=== PATIENT | female | born 1980 | race Caucasian/White ===

== ENCOUNTER 2022-02-07 22:01 | Emergency (ER) | payer OTHER ==
--- OUTSIDE RECORDS SUMMARY | 2022-02-07 22:03 | XMS REPORT | Continuity of Care Document ---
:1980 Author Organization [facility] t Address [address] [place] [address] Care Team Providers Name Role Phone ARNOLDO Attending Clinician Unavailable LUCILA Attending Clinician Unavailable MD MANPREET GAYTAN Attending Clinician Unavailable LUCILA Admitting Clinician Unavailable MD MANPREET GAYTAN Admitting Clinician Unavailable Problems This patient has no known problems. Allergies, Adverse Reactions, Alerts This patient has no known allergies or adverse reactions. Medications This patient has no known medications. Procedures This patient has no known procedures. Encounters Start End Encounter Admission Attending Care Care Encounter Source Date/Time Date/Time Type Type Clinicians Facility Department ID 2020-06-30 2020-06-30 Outpatient ARNOLDO [facility] [id number] [place] 00:00:00 00:00:00 DENISSE [address] 2020-05-21 2020-05-22 Outpatient MARIA GUADALUPE GAYTAN [facility] [id number] [place] 00:00:00 00:00:[address] 2020-05-17 2020-05-17 Outpatient MARIA GUADALUPE GAYTAN [facility] [id number] [place] 00:00:00 00:00:[address] 2020-01-13 2020-01-13 Outpatient MARIA GUADALUPE GAYTAN [facility] [id number] [place] 00:00:00 00:00:[address] 2020-01-13 2020-01-13 Outpatient MARIA GUADALUPE GAYTAN [facility] [id number] [place] 00:00:00 00:00:[address] 2020-01-13 2020-01-13 Outpatient MARIA GUADALUPE GAYTAN [facility] [id number] [place] 00:00:00 00:00:[address] Results Test Description Test Time Test Comments Results Result Comments Source SARS coronavirus 2 RNA [Presence] in Respiratory speci men by 2020-05-18 03:01:37 FADUMO with probe detection Test Item Value Reference Range Interpretation Comme nts SARS coronavirus 2 RNA [Presence] in Respiratory Not detected Not-D etected specimen by FADUMO with probe detection (test code = 91944-9)
[2022-02-07] MEDS ORDERED: LACTULOSE 20 GM/30 ML UCUP ONE (22:51)
[2022-02-07] MEDS ORDERED: BISACODYL 10 MG RECTAL SUPP ONE (22:51)
[2022-02-07] MEDS ORDERED: NA CHLORIDE 0.9% 1,000 ML ONE (22:52)
[2022-02-07 23:02] LABS: Hematocrit 41.6 % (36.0-45.0); RBC Red Blood Cell Count 5.32 M/uL (3.86-4.86)
[2022-02-07 23:03] LABS: Absolute Lymphocytes (CBC) 1.7 K/uL (0.7-4.9); Lymphocytes % 11.5 % (15.3-44.8); MPV 7.3 fL (7.6-11.3)
[2022-02-07 23:11] LABS: ALT/SGPT 34 U/L (12-78); AST/SGOT 17 U/L (15-37); Albumin 4.3 g/dL (3.4-5.0); Alkaline Phosphatase 143 U/L (45-117); BUN Blood Urea Nitrogen 15 mg/dL (7-18); Bicarbonate 26 mmol/L (21-32); Bilirubin Total 0.6 mg/dL (0.2-1.0); Glucose Level 168 mg/dL (74-106); Lipase 106 U/L (73-393); Potassium 3.4 mmol/L (3.5-5.1); Sodium Level 140 mmol/L (136-145)
[2022-02-07] MEDS ORDERED: ONDANSETRON 4 MG/2 ML VIAL ONE (23:35)
[2022-02-08] MEDS ORDERED: NA CHLORIDE 0.9% 1,000 ML ONE (00:57)
--- NOTE | 2022-02-08 01:15 | ER ---
Nurse's Notes [facility] Name: Gabe Nicole Age: 41 yrs Sex: Female : 1980 Arrival Date: 02/07/2022 Time: 22:03 Bed 3 Private MD: Diagnosis: Congenital hiatus hernia;Epigastric pain-gastric outlet obstruction;Elevated white blood cell count;Volvulus-gastric;Hypokalemia Presentation: 02/07 22:43 Chief complaint: Patient states: unable to tolerate liquids/food, abdominal pain, and al4 constipation since yesterday. Coronavirus screen: Vaccine status: Patient reports receiving the 2nd dose of the covid vaccine. moderna. Ebola Screen: No symptoms or risks identified at this time. Initial Sepsis Screen:. Risk Assessment: Do you want to hurt yourself or someone else? Patient reports no desire to harm self or others. Onset of symptoms was February 06, 2022. 22:43 Method Of Arrival: EMS al4 22:43 Acuity: JACKSON 3 al4 02/08 00:13 Initial Sepsis Screen: Does the patient meet any 2 criteria? No. Patient's initial al4 sepsis screen is negative. Does the patient have a suspected source of infection? No. Patient's initial sepsis screen is negative. Triage Assessment: 02/07 22:52 General: Appears in no apparent distress. uncomfortable, Behavior is calm, cooperative. al4 Pain: Complains of pain in abdomen Also complains of constipation, nausea. Neuro: Level of Consciousness is awake, alert, obeys commands, Oriented to person, place, time, situation. Cardiovascular: Capillary refill < 3 seconds Patient's skin is warm and dry. Respiratory: Airway is patent Respiratory effort is unlabored, Respiratory pattern is regular. GI: Abdomen is distended, Bowel sounds present X 4 quads. Abdomen is tender to palpation Reports constipation, nausea, vomiting. Musculoskeletal: Circulation, motion, and sensation intact. 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 al4 Historical: - Allergies: 22:52 Bactrim; al4 - Home Meds: 02/08 00:17 levothyroxine 200 mcg oral cap [Active]; Omeprazole Oral [Active]; Linzess 72 mcg oral al4 cap 1 cap once daily [Active]; omeprazole oral [Active]; Acidophilus Oral [Active]; Vitamin C 1,000 mg Oral tab [Active]; Vitamin D3 oral [Active]; Xyzal 5 mg oral tab [Active]; 00:21 carvedilol 12.5 mg oral tab 2 times per day [Active]; rosuvastatin 10 mg oral tab al4 [Active]; montelukast 10 mg oral tab [Active]; zinc 50 mg oral cap [Active]; - PMHx: 02/07 22:52 Depression; Hyperlipidemia; Hypothyroidism; al4 - Immunization history:: Adult Immunizations up to date, Client reports receiving the 2nd dose of the Covid vaccine. - Social history:: Smoking status: Patient denies any tobacco usage or history of. - Family history:: not pertinent. Screenin/30 00:11 Abuse screen: Denies threats or abuse. Nutritional screening: No deficits noted. al4 Tuberculosis screening: No symptoms or risk factors identified. Fall Risk No fall in past 12 months (0 pts). IV access (20 points). Ambulatory Aid- None/Bed Rest/Nurse Assist (0 pts). Gait- Normal/Bed Rest/Wheelchair (0 pts) Mental Status- Oriented to own ability (0 pts). Total Hayes Fall Scale indicates No Risk (0-24 pts). Assessment: 00:00 Reassessment: Patient and/or family updated on plan of care and expected duration. Pain al4 level reassessed. Patient is alert, oriented x 3, equal unlabored respirations, skin warm/dry/pink. 00:10 Reassessment: bsc given to patient. patient aware of the need for a urine sample but al4 states she does not need to go at this time. 00:57 Reassessment: Patient is alert, oriented x 3, equal unlabored respirations, skin al4 warm/dry/pink. 01:15 Reassessment: new IV needed before zosyn administration. RN attempting IV start. al4 02:04 Reassessment: pt uncomfortable notified EDP new orders received pt medicated see JAN. bb 03:00 Reassessment: Patient and/or family updated on plan of care and expected duration. Pain al4 level reassessed. patient is sitting up in bed. alert and oriented. . 04:00 Reassessment: Patient and/or family updated on plan of care and expected duration. Pain al4 level reassessed. Patient is alert, oriented x 3, equal unlabored respirations, skin warm/dry/pink. 04:31 Reassessment: Report called to [facility] Mely Waggoner RN. al4 05:40 Reassessment: Report given to [facility]. at bedside and aware of al4 transfer. 05:41 Reassessment: Patient is alert, oriented x 3, equal unlabored respirations, skin al4 warm/dry/pink. Vital Signs: 02/07 22:30 BP 136 / 109; Pulse 116; Resp 18; Temp 99.5; Pulse Ox 100% ; Weight 108.86 kg; al4 23:45 BP 146 / 88; Pulse 92; Resp 20 S; Pulse Ox 98% on R/A; al4 02/08 01:01 BP 145 / 85; Pulse 104; Resp 22; Pulse Ox 100% on R/A; al4 02:04 BP 147 / 96; Pulse 104; Resp 16 S; Pulse Ox 97% on R/A; bb 02:30 BP 149 / 82; Pulse 92; al4 04:30 BP 152 / 95; Pulse 103; Resp 20 S; Pulse Ox 97% on R/A; al4 ED Course: 02/07 22:03 Patient arrived in ED. mw2 22:03 Robert Sanchez MD is Attending Physician. [facility] 22:52 Triage completed. al4 22:53 Arm band placed on. al4 23:00 Priti Villatoro RN is Primary Nurse. bb 02/08 00:11 Patient has correct armband on for positive identification. Placed in gown. al4 00:45 CT Abd/Pelvis - PO and IV Contrast In Process Unspecified. EDMS 01:03 US Abdomen Limited In Process Unspecified. EDMS 01:16 initiated a transfer with Peg from [facility] [place]. [facility] declined mw2 due to capacity. 01:21 initiated a transfer with Phylicia from [facility] [place]. mw2 01:50 Inserted saline lock: 20 gauge in left antecubital area, using aseptic technique. bb 02:05 Patient transferred, IV remains in place. bb 02:06 Peg from [facility] called "it is still going to be a decline due to ER saturation mw2 until we can get out of it. I will keep watching it and will call you back.". 03:04 initiated a transfer with Paulette Rodriguez from [facility]. mw2 03:06 [facility] denied due to capacity. mw2 03:33 initiated a transfer with Ruby Simms from [facility] [place]. mw2 03:[address] Sanchez with Dr. Kennedy from [facility]. mw2 03:51 administrative approval given by Ruby Simms/ patient has been accepted to [address] to the ER/ Dr. Kennedy accepted the patient in transfer/report to be called to [phone]. 04:46 No provider procedures requiring assistance completed. Patient transferred, IV remains al4 in place. Administered Medications: 02/07 23:00 Drug: Lactulose 30 grams Volume: 45 ml; Route: PO; bb 02/08 00:51 Follow up: Response: No adverse reaction al4 02/07 23:00 Drug: Dulcolax (bisacodyl) Suppository 10 mg Route: NV; 02/08 00:51 Follow up: Response: No adverse reaction al4 02/07 23:01 Drug: NS 0.9% 1000 ml Route: IV; Rate: 1 bolus; Site: right antecubital; bb 02/08 04:40 Follow up: Response: No adverse reaction; IV Status: Completed infusion; IV Intake: al4 1000ml 02/07 23:43 Drug: Zofran (Ondansetron) 4 mg Route: IVP; Site: right antecubital; bb 02/08 00:51 Follow up: Response: No adverse reaction al4 00:57 Drug: NS 0.9% 1000 ml Route: IV; Rate: 1 bolus; Site: right antecubital; al4 04:39 Follow up: IV Status: Completed infusion; IV Intake: 1000ml al4 01:50 Drug: Zosyn (piperacillin-tazobactam) 3.375 grams {Note: started by LINDSEY Marcos.} Route: al4 IVPB; Infused Over: 60 mins; Site: left antecubital; 04:39 Follow up: Response: No adverse reaction; IV Status: Completed infusion; IV Intake: al4 100ml 02:03 Drug: morphine 4 mg Route: IVP; Site: left antecubital; bb 03:00 Follow up: Response: No adverse reaction; RASS: Alert and Calm (0) al4 03:29 Drug: NS 0.9% with KCl 20 mEq/L 1000 ml Route: IV; Rate: 250 ml/hr; Site: left al4 antecubital; 03:29 Drug: Zofran (Ondansetron) 4 mg Route: IVP; Rate: bolus; Infused Over: 2 mins; Site: al4 right antecubital; 04:00 Follow up: Response: Marked relief of symptoms al4 04:39 Drug: morphine 4 mg Route: IVP; Site: left antecubital; al4 05:00 Follow up: Response: No adverse reaction; RASS: Alert and Calm (0) al4 05:44 Drug: Phenergan (promethazine) 12.5 mg {Note: given by Kelly Lu RN .} Route: IVP; al4 Site: right antecubital; Intake: 04:39 IV: 100ml; Total: 100ml. al4 04:39 IV: 1000ml; Total: 1100ml. al4 04:40 IV: 1000ml; Total: 2100ml. al4 Output: 00:25 Stool: 1 (Formed Stool) ; Total: 0ml. al4 Outcome: 01:14 ER care complete, transfer ordered by . corine 02:05 Instructed on the need for transfer. eamon 04:46 Transferred by ground EMS to [facility]. al4 04:46 Condition: stable 05:44 Patient left the ED. al4 Signatures: Dispatcher [employer] EDMS Robert Sanchez MD MD cha Ballard, Brenda RN RN Varinder He [facility] Everardo Marquez al4 Corrections: (The following items were deleted from the chart) 02/07 22:54 22:43 Chief complaint: Patient states: abdominal pain and constipation since yesterday al4 al4 02/08 00:14 00:11 BP 136 / 109; Pulse 116bpm; Resp 20bpm; Pulse Ox 100%; Temp 99.5F; 108.86 kg; al4 al4 00:17 00:11 BP 136 / 109; Pulse 116bpm; Resp 18bpm; Pulse Ox 100%; Temp 99.5F; 108.86 kg; al4 al4 00:24 00:17 Home Meds: carvedilol 12.5 mg oral tab; al4 al4 01:43 02/07 23:45 BP 146 / 88; Pulse 92bpm; Resp 18bpm; Spontaneous; Pulse Ox 98% RA; al4 al4 02/08 01:43 01:01 BP 145 / 85; Pulse 104bpm; Resp 18bpm; Pulse Ox 100% RA; al4 al4 02:14 02/07 22:52 GI: Reports constipation, nausea, vomiting, al4 al4 02/08 03:40 02:06 Phylicia from [facility] called "it is still going to be a decline due to ER mw2 saturation until we can get out of it. I will keep watching it and will call you back." mw2 03:53 03:[address] Sanchez with Dr. Velasquez from [facility] mw2 mw2
--- NOTE | 2022-02-08 01:15 | EDPHYS ---
Physician Documentation [facility] Name: Gabe Nicole Age: 41 yrs Sex: Female : 1980 Arrival Date: 02/07/2022 Time: 22:03 Bed 3 Private MD: ED Physician Robert Sanchez HPI: 02/08 00:24 This 41 yrs old Female presents to ER via EMS with complaints of abd pain, corine vomiting and constapation. 00:24 The patient presents with abdominal pain in the upper abdomen, abdominal distention in corine the upper abdomen. Onset: The symptoms/episode began/occurred 2 day(s) ago. The patient presents to the emergency department with nausea, vomiting, that is continuous, abdominal pain, of the right upper quadrant and left upper quadrant. Onset: The symptoms/episode began/occurred 2 day(s) ago. Possible causes: unknown. The symptoms are aggravated by nothing. The symptoms are alleviated by nothing. Associated signs and symptoms: The patient has no apparent associated signs or symptoms. Associated signs and symptoms: Pertinent positives: nausea, vomiting. 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 al4 Historical: - Allergies: 22:52 Bactrim; al4 - Home Meds: 02/08 00:17 levothyroxine 200 mcg oral cap [Active]; Omeprazole Oral [Active]; Linzess 72 mcg oral al4 cap 1 cap once daily [Active]; omeprazole oral [Active]; Acidophilus Oral [Active]; Vitamin C 1,000 mg Oral tab [Active]; Vitamin D3 oral [Active]; Xyzal 5 mg oral tab [Active]; 00:21 carvedilol 12.5 mg oral tab 2 times per day [Active]; rosuvastatin 10 mg oral tab al4 [Active]; montelukast 10 mg oral tab [Active]; zinc 50 mg oral cap [Active]; - PMHx: 02/07 22:52 Depression; Hyperlipidemia; Hypothyroidism; al4 - Immunization history:: Adult Immunizations up to date, Client reports receiving the 2nd dose of the Covid vaccine. - Social history:: Smoking status: Patient denies any tobacco usage or history of. - Family history:: not pertinent. ROS: 02/08 00:24 Constitutional: Negative for fever, chills, and weight loss, Eyes: Negative for injury, corine pain, redness, and discharge, ENT: Negative for injury, pain, and discharge, Neck: Negative for injury, pain, and swelling, Cardiovascular: Negative for chest pain, palpitations, and edema, Respiratory: Negative for shortness of breath, cough, wheezing, and pleuritic chest pain, Back: Negative for injury and pain, : Negative for injury, bleeding, discharge, and swelling, MS/Extremity: Negative for injury and deformity, Skin: Negative for injury, rash, and discoloration, Neuro: Negative for headache, weakness, numbness, tingling, and seizure, Psych: Negative for depression, anxiety, suicide ideation, homicidal ideation, and hallucinations, Allergy/Immunology: Negative for hives, rash, and allergies, Endocrine: Negative for neck swelling, polydipsia, polyuria, polyphagia, and marked weight changes, Hematologic/Lymphatic: Negative for swollen nodes, abnormal bleeding, and unusual bruising. Abdomen/GI: Positive for abdominal pain. Exam: 00:24 Constitutional: This is a well developed, well nourished patient who is awake, alert, corine and in no acute distress. Head/Face: Normocephalic, atraumatic. Eyes: Pupils equal round and reactive to light, extra-ocular motions intact. Lids and lashes normal. Conjunctiva and sclera are non-icteric and not injected. Cornea within normal limits. Periorbital areas with no swelling, redness, or edema. ENT: Nares patent. No nasal discharge, no septal abnormalities noted. Tympanic membranes are normal and external auditory canals are clear. Oropharynx with no redness, swelling, or masses, exudates, or evidence of obstruction, uvula midline. Mucous membranes moist. Neck: Trachea midline, no thyromegaly or masses palpated, and no cervical lymphadenopathy. Supple, full range of motion without nuchal rigidity, or vertebral point tenderness. No Meningismus. Chest/axilla: Normal chest wall appearance and motion. Nontender with no deformity. No lesions are appreciated. Cardiovascular: Regular rate and rhythm with a normal S1 and S2. No gallops, murmurs, or rubs. Normal PMI, no JVD. No pulse deficits. Respiratory: Lungs have equal breath sounds bilaterally, clear to auscultation and percussion. No rales, rhonchi or wheezes noted. No increased work of breathing, no retractions or nasal flaring. Back: No spinal tenderness. No costovertebral tenderness. Full range of motion. Skin: Warm, dry with normal turgor. Normal color with no rashes, no lesions, and no evidence of cellulitis. MS/ Extremity: Pulses equal, no cyanosis. Neurovascular intact. Full, normal range of motion. Neuro: Awake and alert, GCS 15, oriented to person, place, time, and situation. Cranial nerves II-XII grossly intact. Motor strength 5/5 in all extremities. Sensory grossly intact. Cerebellar exam normal. Normal gait. Psych: Awake, alert, with orientation to person, place and time. Behavior, mood, and affect are within normal limits. 00:24 Abdomen/GI: Inspection: distension, that is mild, Bowel sounds: active, Palpation: mild abdominal tenderness, in the epigastric area, right upper quadrant and left upper quadrant, Liver: no appreciated palpable abnormalities, Hernia: not appreciated. Vital Signs: 02/07 22:30 BP 136 / 109; Pulse 116; Resp 18; Temp 99.5; Pulse Ox 100% ; Weight 108.86 kg; al4 23:45 BP 146 / 88; Pulse 92; Resp 20 S; Pulse Ox 98% on R/A; al4 02/08 01:01 BP 145 / 85; Pulse 104; Resp 22; Pulse Ox 100% on R/A; al4 02:04 BP 147 / 96; Pulse 104; Resp 16 S; Pulse Ox 97% on R/A; bb 02:30 BP 149 / 82; Pulse 92; al4 04:30 BP 152 / 95; Pulse 103; Resp 20 S; Pulse Ox 97% on R/A; al4 MDM: 02/07 22:03 Patient medically screened. corine 02/08 00:27 Differential diagnosis: bowel obstruction, cholecystitis, Cholelithiasis, corine diverticulitis, Dysmenorrhea, gastritis, non-specific abd pain. Data reviewed: vital signs, nurses notes, lab test result(s), radiologic studies, CT scan. 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 Test interpretation: by ED physician or midlevel provider:. Counseling: I had a detailed discussion with the patient and/or guardian regarding: the historical points, exam findings, and any diagnostic results supporting the discharge/admit diagnosis, lab results, radiology results. 02/07 22:07 Order name: CBC with Diff; Complete Time: 23:24 [facility] 02/07 22:07 Order name: CMP; Complete Time: 23:24 [facility] 02/07 22:07 Order name: Lipase; Complete Time: 23:24 corine 02/08 01:09 Order name: SARS-COV-2 RT PCR (Document "Date of Onset" if Symptomatic); Complete Time: corine 02:02/08 01:42 Order name: Urine Dipstick-Ancillary; Complete Time: 02:22 EDMS 02/08 01:43 Order name: Urine --Ancillary (enter results); Complete Time: 02:22 mw2 02/07 22:07 Order name: CT Abd/Pelvis - PO and IV Contrast [facility] 02/08 00:29 Order name: US Abdomen Limited [facility] 02/07 22:07 Order name: IV Saline Lock; Complete Time: 23:43 [facility] 02/07 22:07 Order name: Labs collected and sent; Complete Time: 23:43 [facility] 02/07 22:07 Order name: Urine Dipstick-Ancillary (obtain specimen); Complete Time: 01:42 [facility] 02/07 22:07 Order name: Urine Test (obtain specimen); Complete Time: 01:42 [facility] Administered Medications: 02/07 23:00 Drug: Lactulose 30 grams Volume: 45 ml; Route: PO; bb 02/08 00:51 Follow up: Response: No adverse reaction al4 02/07 23:00 Drug: Dulcolax (bisacodyl) Suppository 10 mg Route: TX; bb 02/08 00:51 Follow up: Response: No adverse reaction al4 02/07 23:01 Drug: NS 0.9% 1000 ml Route: IV; Rate: 1 bolus; Site: right antecubital; 02/08 04:40 Follow up: Response: No adverse reaction; IV Status: Completed infusion; IV Intake: al4 1000ml 02/07 23:43 Drug: Zofran (Ondansetron) 4 mg Route: IVP; Site: right antecubital; 02/08 00:51 Follow up: Response: No adverse reaction al4 00:57 Drug: NS 0.9% 1000 ml Route: IV; Rate: 1 bolus; Site: right antecubital; al4 04:39 Follow up: IV Status: Completed infusion; IV Intake: 1000ml al4 01:50 Drug: Zosyn (piperacillin-tazobactam) 3.375 grams {Note: started by LINDSEY Marcos.} Route: al4 IVPB; Infused Over: 60 mins; Site: left antecubital; 04:39 Follow up: Response: No adverse reaction; IV Status: Completed infusion; IV Intake: al4 100ml 02:03 Drug: morphine 4 mg Route: IVP; Site: left antecubital; bb 03:00 Follow up: Response: No adverse reaction; RASS: Alert and Calm (0) al4 03:29 Drug: NS 0.9% with KCl 20 mEq/L 1000 ml Route: IV; Rate: 250 ml/hr; Site: left al4 antecubital; 03:29 Drug: Zofran (Ondansetron) 4 mg Route: IVP; Rate: bolus; Infused Over: 2 mins; Site: al4 right antecubital; 04:00 Follow up: Response: Marked relief of symptoms al4 04:39 Drug: morphine 4 mg Route: IVP; Site: left antecubital; al4 05:00 Follow up: Response: No adverse reaction; RASS: Alert and Calm (0) al4 05:44 Drug: Phenergan (promethazine) 12.5 mg {Note: given by Kelly Lu RN .} Route: IVP; al4 Site: right antecubital; Disposition Summary: 02/08/22 01:14 Transfer Ordered Transfer Location: [facility] corine Reason: Higher level of care corine Condition: Stable corine Problem: new corine Symptoms: have improved corine Accepting Physician: mayda wiseman md(02/08/22 05:44) al4 Diagnosis - Congenital hiatus hernia corine - Epigastric pain - gastric outlet obstruction corine - Elevated white blood cell count corine - Volvulus - gastric corine - Hypokalemia corine Forms: - Medication Reconciliation Form corine - SBAR form corine Signatures: Dispatcher [employer] EDRobert Ruth MD MD cha Ballard, Brenda RN RN Stanley Yuan PA PA [id number] Ledbetter, Alexis al4 Sully Chambers RN RN [id number] Corrections: (The following items were deleted from the chart) 00:24 00:17 Home Meds: carvedilol 12.5 mg oral tab; al4 al4 01:19 01:14 min ivone holloway cha, cha 02:39 01:19 min ivone holloway cha, cha 05:44 02:39 min ivone holloway cha al4
[2022-02-08] MEDS ORDERED: PIPERACIL/TAZO 3.375 GM VIAL IV ONE (01:19)
[2022-02-08] MEDS ORDERED: NA CHLORIDE 0.9% 100 ML IV ONE (01:19)
[2022-02-08 01:42] LABS: Urine Blood Negative (Negative); Urine Glucose Negative (Negative); Urine Protein 3+ (Negative); Urine Specific Gravity 1.025 (1.005-1.030)
[2022-02-08] MEDS ORDERED: MORPHINE 4 MG/ML SYR ONE ×2 (01:59→04:35)
[2022-02-08 02:18] LABS: Urine Specific Gravity/Preg 1.025 (1.005-1.030)
[2022-02-08] MEDS ORDERED: NS KCL 20MEQ 1,000 ML IV ONE (03:17)
[2022-02-08] MEDS ORDERED: ONDANSETRON 4 MG/2 ML VIAL ONE (03:28)
[2022-02-08] MEDS ORDERED: PROMETHAZINE INJ 25 MG/ML AMP ONE (05:43)
[2022-02-08 05:52] VITALS: TEMP 99.5
[2022-02-08 05:56] VITALS: O2SAT 97
[2022-02-08 05:58] VITALS: BP 152/95
--- NOTE | 2022-02-08 14:17 | RAD REPORT ---
EXAM DESCRIPTION: US - Abdomen Exam Limited - 02/08/2022 1:38 am CLINICAL HISTORY: 41 years, Female, ABD PAIN COMPARISON: Recent CT scan of the abdomen and pelvis performed 02/08/2022. TECHNIQUE: Utilizing a curved array transducer, real-time ultrasound evaluation of the abdominal vis cera was performed. Color Doppler imaging was used to assess vascular flow. FINDINGS: The gallbladder demonstrate to be within normal limits. No gallbladder stones were seen. No pericholecystic fluid and or wall thickening was identified. The common bile duct measures 2. 5 mm. No intra or extrahepatic biliary duct dilatation was identified. The visualized portions of the liver demonstrate to unremarkable. IMPRESSION: UNREMARKABLE GALLBLADDER. NORMAL SIZE COMMON BILE DUCT. Electronically signed by: Jean Swartz MD 02/08/2022 1:19 AM CDT Due to temporary technical issues with the PACS/Fluency reporting system, reports are being signed by the in house radiologists without review as a courtesy to insure prompt reporting. The interpreting radiologist is fully responsible for the content of the report.
--- NOTE | 2022-02-08 14:26 | RAD REPORT ---
EXAM DESCRIPTION: CT - Abdomen Pelvis W Contrast - 02/08/2022 6:44 am ADDENDUM #1 These findings were communicated to DR Robert Sanchez on 02/08/2022 1:04 AM. (CLIENT PROFESSIONAL) Electronically signed by: Anil Ahmadi MD 02/08/2022 1:41 AM CDT End of Addendum EXAM DESCRIPTION: Abdomen Pelvis W Contrast CLINICAL HISTORY: 41 years Female, ABD PAIN TECHNIQUE: Helical CT axial images are obtained from the lung bases to the pubic symphysis with IV c ontrast. No oral contrast was administered. Multiplanar reconstruction. This exam was performed accor ding to our departmental dose-optimization program, which includes automated exposure control, adjust ment of the mA and/or kV according to patient size and/or use of iterative reconstruction technique. COMPARISON: None. FINDINGS: LUNG BASES: No basilar consolidation or effusions. LIVER: Normal in size. Mild diffuse decreased attenuation. No focal masses. HEPATOBILIARY: Normal-appearing gallbladder. No intra- or extrahepatic ductal dilatation. SPLEEN: Normal size. PANCREAS: Normal size and contour. No focal mass. ADRENAL GLANDS: Normal size. No adrenal masses. KIDNEYS: Bilateral kidneys are normal in size without obstructing calculi or hydronephrosis. No nep hrolithiasis. No significant cysts are present. No focal solid mass. BOWEL AND MESENTERY: Surgical clips distal esophagus. Moderate size hiatal hernia containing portions of the stomach and proximal duodenum with evidence of volvulus resulting in severe gastric distentio n with gastric outlet obstruction. Diffuse retained hyperdense substance likely related to ingested s ubstance throughout the gastric lumen. No small or large bowel dilatation. Sigmoid diverticulosis. No rmal appendix. No abnormal mesenteric lymphadenopathy. No free fluid or pneumoperitoneum. RETROPERITONEUM: Normal caliber abdominal aorta without aneurysm. No abnormal retroperitoneal lymphad enopathy. PELVIS: Urinary bladder is unremarkable. Uterus and adnexal structures are unremarkable. ABDOMINAL WALL: The abdominal wall is intact. BONES: No suspicious osseous lytic or blastic lesions seen. IMPRESSION: 1. Severe gastric distention with gastric outlet obstruction. Moderate size hiatal her avinash containing portions of the stomach and proximal duodenum, findings suggestive of volvulus within the hiatal hernia involving the gastric pylorus/proximal duodenum. Recommend surgical consultation. 2. Hyperdense substance throughout the gastric lumen is likely related to ingested substance. 3. Prior surgery of the distal esophagus. 4. Sigmoid diverticulosis. 5. Mild hepatic steatosis. Electronically signed by: Anil Ahmadi MD 02/08/2022 1:11 AM CDT Due to temporary technical issues with the PACS/Fluency reporting system, reports are being signed by the in house radiologists without review as a courtesy to insure prompt reporting. The interpreting radiologist is fully responsible for the content of the report.
== END 2022-02-08 05:44 | disposition short-term general hospital (02) ==
LOC: ER 22:01
DX: K31.1 Adult hypertrophic pyloric stenosis (principal); K56.2 Volvulus; Q40.1 Congenital hiatus hernia; E87.6 Hypokalemia; D72.829 Elevated white blood cell count, unspecified; E78.5 Hyperlipidemia, unspecified; E03.9 Hypothyroidism, unspecified; F32.A Depression, unspecified; Z88.1 Allergy status to other antibiotic agents; Z20.822 Contact with and (suspected) exposure to COVID-19
CPT/HCPCS: 85025; 36415; 81025; 81003; 83690; 80053; 74177; 76705; U0003; Q9967; J2550; J2543; J7030 ×2; J2405 ×2; J3480

== ENCOUNTER 2025-08-18 19:20 | Emergency (ER) | payer OTHER ==
--- NOTE | 2025-08-18 20:31 | RAD REPORT ---
EXAM: Chest Abdomen Pelvis W Cont CLINICAL INDICATION: Female, 45 years ABDOMINAL DISTENTION TECHNIQUE: CT chest, abdomen and pelvis was performed, with IV contrast, as per department protocol. Axial, sagittal and coronal reconstructions were obtained. One or more of the following dose reduction techniques were used: Automated exposure control, adjustment of the mA and/or kV according to the patient size, and/or iterative reconstruction. Unless otherwise specified, incidental findings do not require dedicated imaging follow-up. [id number]. COMPARISON: 01/12/2022 FINDINGS: ---THORAX--- LOWER NECK AND CHEST WALL: Visualized thyroid gland and soft tissues are normal. MEDIASTINUM AND LYMPH NODES: No mediastinal mass or fluid collection. Normal size mediastinal, hilar, and axillary lymph nodes. Moderate hiatal hernia with similar gastric volvulus. The gastroesophageal junction is above the diaphragm however the proximal stomach is below the diaphragm in the distal stomach including the peripyloric region is above the diaphragm. No evidence of a gastric outlet obstruction. Surgical changes at the gastroesophageal junction. THORACIC AORTA: No thoracic aortic aneurysm. PULMONARY ARTERIES: Caliber is within normal limits. HEART: Normal heart size. No coronary calcifications. No significant pericardial effusion. LUNGS AND AIRWAYS: Airways are clear. No evidence of airspace or interstitial process. No suspicious and/or stable pulmonary nodules. PLEURA: Trace left pleural effusion. No pneumothorax. ---ABDOMEN/PELVIS--- UPPER GI: Gastric volvulus as noted above. There is tethering of the distal stomach to the anterior a bdominal wall which may reflect interval postoperative changes. LIVER: Hepatic steatosis, but otherwise unremarkable. GALLBLADDER/BILE DUCTS: No biliary ductal dilatation.? PANCREAS: No mass, ductal dilation, or aaron-pancreatic fluid. SPLEEN: Mild splenomegaly. ADRENALS: No adrenal masses. KIDNEYS AND URETERS: No hydronephrosis.No suspicious renal mass.No renal calculi. ABDOMINAL AORTA AND OTHER VESSELS: Normal caliber aorta and IVC. PERITONEUM: Nonspecific free fluid. LYMPH NODES: No pathologic lymphadenopathy. ABDOMINAL WALL: Unremarkable SMALL BOWEL/COLON: Small bowel has normal course and caliber. No colonic wall thickening or pericolon ic inflammatory changes. Normal appendix. URINARY BLADDER: Underdistended but grossly unremarkable. REPRODUCTIVE ORGANS: No pathologic process. ---COMBINED--- MUSCULOSKELETAL: No acute or suspicious osseous abnormality. ADDITIONAL FINDINGS: None. IMPRESSION: Gastric volvulus which was present on the 02/08/2022 exam. There is tethering of the distal stomach to the anterior abdominal wall which is new from prior and may reflect interval postoperative changes. No evidence of gastric outlet obstruction as was seen on the prior CT. This may be the stabl e postoperative appearance.
[2025-08-18 20:36] LABS: Absolute Lymphocytes (CBC) 1.7 K/uL (0.7-4.9); Hematocrit 41.0 % (36.0-45.0); Hemoglobin 14.1 g/dL (12.0-15.0); MCH 28.1 pg (27.0-35.0); MCHC 34.5 g/dL (32.0-36.0); MCV 81.5 fL (80-100); MPV 7.5 fL (7.6-11.3); Nucleated RBC Absolute Count 0.0 (0-0); Nucleated Red Blood Cells % 0.1 % (0-0); RBC Red Blood Cell Count 5.02 M/uL (3.86-4.86); White Blood Count 11.70 thou/uL (4.3-10.9)
[2025-08-18] MEDS ORDERED: PANTOPRAZOLE 40 MG INJ ONE ×2 (20:42→23:42)
[2025-08-18] MEDS ORDERED: ONDANSETRON 4 MG/2 ML VIAL ONE (20:42)
[2025-08-18] MEDS ORDERED: KETOROLAC 30 MG/ML INJ ONE (20:42)
[2025-08-18] MEDS ORDERED: MORPHINE 4 MG/ML SYR ONE (20:43)
[2025-08-18] MEDS ORDERED: NA CHLORIDE 0.9% 0 ML ONE (20:43)
[2025-08-18 20:59] LABS: ALT/SGPT 18 U/L (13-56); Albumin 3.9 g/dL (3.4-5.0); Albumin/Globulin Ratio 1.0 (1.1-1.8); Alkaline Phosphatase 75 U/L (45-117); Anion Gap 10.3 mEq/L (5.0-15.0); BUN Blood Urea Nitrogen 10 mg/dL (7-18); Globulin 3.9 g/dL (2.3-3.5); Glucose Level 124 mg/dL (74-106); Lipase 15 U/L (13-75); Potassium 3.3 mEq/L (3.5-5.1)
[2025-08-18 21:00] LABS: AST/SGOT < 10 U/L (15-37)
--- NOTE | 2025-08-18 22:01 | EDPHYS ---
Physician Documentation [facility] Name: Gabe Nicole Age: 45 yrs Sex: Female : 1980 Arrival Date: 08/18/2025 Time: 19:20 Bed 18 Private MD: ED Physician Hugo Valera HPI: 08/18 19:24 This 45 yrs old Female presents to ER via Unassigned with complaints of sp4 Abdominal Pain, Nausea. 08/19 19:45 Patient presents with abdominal pain and nausea . . 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 Patient states that in January 2022 she was transferred to [facility] for gastric volvulus where she inadvertently sustained gastric perforation after upper endoscopy. Patient and had to be taken to the operating room for gastric surgery gastric pulldown and gastropexy. . 19:47 Patient's medication list include omeprazole 40 mg daily, metformin 500 mg twice daily, sp4 probiotic acidophilus, B12, D3, fark [employer] 10 mg, carvedilol 25 mg twice daily, alprazolam 0.5 mg daily, vitamin C, fish oil, rosuvastatin 10 mg daily, fenofibrate 54 mg daily, iron 65 mg daily, fluoxetine 20 mg daily, zinc 50 mg daily, montelukast 10 mg daily, vitamin C 1000 mg twice a day, fish oil 1000 mg twice a day. 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 - Infectious Disease History:: Denies. - Social history:: Smoking status: Patient denies any tobacco usage or history of. - Family history:: not pertinent. ROS: 08/19 19:45 Constitutional: Negative for fever, chills, and weight loss, positive for abdominal sp4 pain and nausea. All other systems are negative, Exam: 19:47 Constitutional: This is a well developed, well nourished patient who is awake, alert, sp4 and in no acute distress. Head/Face: Normocephalic, atraumatic. Eyes: Pupils equal round and reactive to light, extra-ocular motions intact. Lids and lashes normal. Conjunctiva and sclera are not injected. Cornea within normal limits. Periorbital areas with no swelling, redness, or edema. ENT: Nares patent. No nasal discharge, no septal abnormalities noted. Tympanic membranes are normal and external auditory canals are clear. Oropharynx with no redness, swelling, or masses, exudates, or evidence of obstruction, uvula midline. Mucous membranes moist. Neck: Trachea midline, no thyromegaly or masses palpated, and no cervical lymphadenopathy. Supple, full range of motion without nuchal rigidity, or vertebral point tenderness. Chest/axilla: Normal chest wall appearance and motion. Nontender with no deformity. No lesions are appreciated. Cardiovascular: Regular rate and rhythm with a normal S1 and S2. No gallops, murmurs, or rubs. No pulse deficits. Respiratory: Lungs have equal breath sounds bilaterally, clear to auscultation and percussion. No rales, rhonchi or wheezes noted. No increased work of breathing, no retractions or nasal flaring. Abdomen/GI: Soft, with normal bowel sounds. No distension or tympany. No guarding or rebound. No evidence of tenderness throughout. Back: No spinal tenderness. No costovertebral tenderness. Skin: Warm, dry with normal turgor. Normal color with no rashes, no lesions, and no evidence of cellulitis. MS/ Extremity: Pulses equal, no cyanosis. Neurovascular intact. Full, normal range of motion. Neuro: Awake and alert, GCS 15, oriented to person, place, time, and situation. Cranial nerves II-XII grossly intact. Motor strength 5/5 in all extremities. Sensory grossly intact. Psych: Awake, alert, with orientation to person, place and time. Behavior, mood, and affect are within normal limits Vital Signs: 08/18 19:27 BP 166 / 97; Pulse 81; Resp 18; Temp 98.4; Pulse Ox 100% ; Weight 96.62 kg; Height 5 cp4 ft. 6 in. ; Pain 5/10; 20:57 BP 141 / 83; Pulse 84; Resp 19; Pulse Ox 99% on R/A; Pain 3/10; tb4 22:00 BP 127 / 59; Pulse 73; Resp 18; Pulse Ox 99% ; vc1 23:00 BP 134 / 95; Pulse 69; Resp 16; Pulse Ox 99% ; vc1 08/19 00:00 BP 151 / 72; Pulse 75; Resp 16; Pulse Ox 95% ; vc1 01:00 BP 151 / 72; Pulse 96; Resp 17; Pulse Ox 99% on R/A; Pain 0/10; tb4 08/18 19:27 Body Mass Index 34.38 (96.62 kg, 167.64 cm) cp4 08/18 19:27 Pain Scale: Adult cp4 20:57 Pain Scale: Adult tb4 01:00 Pain Scale: Adult tb4 Farheen Coma Score: 19:47 Eye Response: spontaneous(4). Motor Response: obeys commands(6). Verbal Response: sp4 oriented(5). Total: 15. MDM: 08/18 20:24 Medical Screening Exam initiated sp4 08/19 05:37 ED course: EXAM: XR Abdomen, 1 View CLINICAL HISTORY: NGT PLACEMENT TECHNIQUE: Frontal sp4 supine view of the abdomen/pelvis. COMPARISON: Correlation is made with report only from CTAbdomen Pelvis dated 08/18/2025 FINDINGS: Lower thorax: Moderate hiatal hernia. Gastrointestinal tract: No small bowel dilation. Bones/joints: Unremarkable. No acute fracture. Tubes, lines and devices: Nasogastric tube coiled projecting over the left upper quadrant in the expected region of the subdiaphragmatic portion of the stomach. IMPRESSION: Nasogastric tube coiled projecting over the left upper quadrant in the expected region of the subdiaphragmatic portion of the stomach. . ED course: FINDINGS: ---THORAX--- LOWER NECK AND CHEST WALL: Visualized thyroid gland and soft tissues are normal. MEDIASTINUM AND LYMPH NODES: No mediastinal mass or fluid collection. Normal size mediastinal, hilar, and axillary lymph nodes. Moderate hiatal hernia with similar gastric volvulus. The gastroesophageal junction is above the diaphragm however the proximal stomach is below the diaphragm in the distal stomach including the peripyloric region is above the diaphragm. No evidence of a gastric outlet obstruction. Surgical changes at the gastroesophageal junction. THORACIC AORTA: No thoracic aortic aneurysm. PULMONARYARTERIES: Caliber is within normal limits. HEART: Normal heart size. No coronary calcifications. No significant pericardial effusion. LUNGS AND AIRWAYS: Airways are clear. No evidence of airspace or interstitial process. No suspicious and/or stable pulmonary nodules. PLEURA: Trace left pleural effusion. No pneumothorax. ---ABDOMEN/PELVIS--- UPPER GI: Gastric volvulus as noted above. There is tethering of the distal stomach to the anterior abdominal wall which may reflect interval postoperative changes. LIVER: Hepatic steatosis, but otherwise unremarkable. GALLBLADDER/BILE DUCTS: No biliary ductal dilatation.? PANCREAS: No mass, ductal dilation, or aaron-pancreatic fluid. SPLEEN: Mild splenomegaly. ADRENALS: No adrenal masses. KIDNEYS AND URETERS: No hydronephrosis.No suspicious renal mass.No renal calculi. ABDOMINAL AORTA AND OTHER VESSELS: Normal caliber aorta and IVC. PERITONEUM: Nonspecific free fluid. LYMPH NODES: No pathologic lymphadenopathy. ABDOMINAL WALL: Unremarkable SMALL BOWEL/COLON: Small bowel has normal course and caliber. No colonic wall thickening or pericolonic inflammatory changes. Normal appendix. URINARYBLADDER: Underdistended but grossly unremarkable. REPRODUCTIVE ORGANS: No pathologic process. ---COMBINED--- MUSCULOSKELETAL: No acute or suspicious osseous abnormality. ADDITIONAL FINDINGS: None. IMPRESSION: Gastric volvulus which was present on the 02/08/2022 exam. There is tethering of the distal stomach to the anterior abdominal wall which is new from prior and may reflect interval postoperative changes. No evidence of gastric outlet obstruction as was seen on the prior CT. This may be the stable postoperative appearance. . 19:47 Differential diagnosis: Nonspecific abd pain, gastritis, viral gastroenteritis, sp4 gastroenteritis. Data reviewed: vital signs, nurses notes. Consideration of Admission/Observation Escalation of care including admission/observation considered. 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 ED course: Positive for Volvulus . 08/18 19:24 Order name: CBC with Diff; Complete Time: 21:33 sp4 08/18 19:24 Order name: CMP; Complete Time: 21:33 sp4 08/18 19:24 Order name: Lipase; Complete Time: 21:33 sp4 08/18 19:46 Order name: CT Chest, Abdomen, Pelvis - W/Contrast; Complete Time: 21:33 sp4 08/19 01:14 Order name: Abdomen Single View EDMS 08/18 19:24 Order name: IV Saline Lock; Complete Time: 20:20 sp4 08/18 19:24 Order name: Labs collected and sent; Complete Time: 20:20 sp4 08/18 19:46 Order name: NPO; Complete Time: 20:57 sp4 08/18 22:16 Order name: NG Tube; Complete Time: 01:11 sp4 Administered Medications: 08/18 20:55 Drug: Pantoprazole IVP 40 mg IVP once Route: IVP; Site: right antecubital; tb4 21:07 Follow up: Response: No adverse reaction tb4 20:56 Drug: NS 0.9% IV 1000 ml IV at 1000 ml once; to be given as a bolus over 60 minutes tb4 Route: IV; Rate: 1000 ml; Site: right antecubital; 08/19 00:24 Follow up: Response: No adverse reaction; IV Status: Completed infusion tb4 08/18 20:56 Drug: Ketorolac IVP 30 mg IVP once Route: IVP; Site: right antecubital; tb4 21:07 Follow up: Response: No adverse reaction; Pain is decreased tb4 20:57 Drug: Ondansetron IVP 8 mg IVP once; over 2 minutes Route: IVP; Site: right antecubital;tb4 21:08 Follow up: Response: No adverse reaction; Nausea is decreased tb4 08/19 00:19 Drug: Potassium Chloride IV 20 mEq IV at calculated rate once; administer over 1-2 tb4 hours Route: IV; Rate: calculated rate; Site: right antecubital; 01:12 Follow up: Response: No adverse reaction; IV Status: Completed infusion tb4 00:19 Drug: metoCLOPramide IVP 10 mg IVP once; over 1 to 2 minutes Route: IVP; Site: right tb4 antecubital; 01:34 Follow up: Response: No adverse reaction; Nausea is decreased cp4 00:19 Drug: fentaNYL (PF) IVP 50 mcg IVP once Route: IVP; Site: right antecubital; tb4 01:25 Follow up: Response: No adverse reaction; Pain is decreased; RASS: Alert and Calm (0) tb4 00:47 Drug: Diazepam IVP 10 mg IVP once Route: IVP; Site: right antecubital; tb4 01:26 Follow up: Response: No adverse reaction; Anxiety decreased tb4 01:11 Drug: Pantoprazole IV 8 mg/hr IV at 25 ml/hr continuous; (Standard dilution is 80 mg in tb4 250 mL NS) Route: IV; Rate: 25 ml/hr; Site: right antecubital; 01:25 Follow up: Response: No adverse reaction; IV Status: Infusion continued tb4 01:12 Drug: D5-NS IV 1000 ml IV at 125 ml/hr once; 125 mL/hr continuous Route: IV; Rate: 125 tb4 ml/hr; Site: left antecubital; 01:24 Follow up: Response: No adverse reaction; IV Status: Infusion continued tb4 01:34 Not Given (Patient Refused): morphineor iv 4 mg IVP once over 4 mins cp4 Disposition Summary: 08/18/25 22:01 Transfer Ordered Notes: Transfer Location: [facility] sp4 Reason: Higher level of care sp4 Condition: Stable sp4 Problem: new sp4 Symptoms: have improved sp4 Accepting Physician: [facility] attending(08/19/25 01:35) cp4 Diagnosis - Volvulus sp4 - Acute moderate to severe upper abdominal pain, acute nausea, gastric volvulus sp4 - Hiatal hernia sp4 Discharge Instructions: - Discharge Summary Sheet al5 Forms: - Medication Reconciliation Form sp4 - SBAR form sp4 - Family Work Release al5 Critical care time excluding procedures: 05:38 Critical care time: Bedside Care: 36 minutes, Consultation: 12 minutes, Family sp4 Intervention: 12 minutes. Total time: 60 minutes Signatures: Dispatcher [employer] Hugo Mckeon MD MD sp4 Lisa Miner cp4 Uzma Dc RN RN tb4 Corrections: (The following items were deleted from the chart) 01:35 08/18 22:01 [facility] attending sp4 cp4
--- NOTE | 2025-08-18 22:01 | ER ---
Nurse's Notes [facility] Name: Gabe Nicole Age: 45 yrs Sex: Female : 1980 Arrival Date: 08/18/2025 Time: 19:20 Bed 18 Private MD: Diagnosis: Volvulus;Acute moderate to severe upper abdominal pain, acute nausea, gastric volvulus;Hiatal hernia Presentation: 08/18 19:27 Chief complaint: Patient states: abdominal pain and gas since . Also reports cp4 nausea. States her mom last week and she is under a bunch of stress. Coronavirus screen: Client denies travel out of the [place] in the last 14 days. At this time, the client does not indicate any symptoms associated with coronavirus-19. Ebola Screen: Patient negative for fever greater than or equal to 101.5 degrees Fahrenheit, and additional compatible Ebola Virus Disease symptoms Patient denies exposure to infectious person. Patient denies travel to an Ebola-affected area in the 21 days before illness onset. No symptoms or risks identified at this time. Initial Sepsis Screen: Does the patient meet any 2 criteria? No. Patient's initial sepsis screen is negative. Does the patient have a suspected source of infection? No. Patient's initial sepsis screen is negative. Risk Assessment: Do you want to hurt yourself or someone else? Patient reports no desire to harm self or others. Onset of symptoms was August 13, 2025. 19:27 Method Of Arrival: Ambulatory cp4 19:27 Acuity: JACKSON 3 cp4 Triage Assessment: 19:29 General: Appears in no apparent distress. uncomfortable, Behavior is calm, cooperative, cp4 appropriate for age. Pain: Complains of pain in abdomen Pain does not radiate. Pain currently is 5 out of 10 on a pain scale. GI: Reports gaseousness, nausea. BELT TENDER: 19:29 LMP 07/31/2025, unknown cp4 Historical: - Allergies: 19:29 Bactrim; cp4 - PMHx: 19:29 Depression; Hyperlipidemia; Hypothyroidism; cp4 - PSHx: 19:29 Hernia repair (Hypothyroidism); cp4 - Immunization history:: Adult Immunizations up to date. - Infectious Disease History:: Denies. - Social history:: Smoking status: Patient denies any tobacco usage or history of. - Family history:: not pertinent. Screenin:[facility] ED Fall Risk Assessment (Adult) History of falling in the last 3 months, tb4 including since admission No falls in past 3 months (0 pts) Confusion or Disorientation No (0 pts) Intoxicated or Sedated No (0 pts) Impaired Gait No (0 pts) Mobility Assist Device Used No (0 pt) Altered Elimination No (0 pt) Score/Fall Risk Level 0 - 2 = Low Risk Maintained a safe environment. Abuse screen: Denies threats or abuse. Denies injuries from another. Nutritional screening: No deficits noted. Tuberculosis screening: No symptoms or risk factors identified. Assessment: 21:03 General: Appears in no apparent distress. Behavior is calm, cooperative. Pain: tb4 Complains of pain in abdomen Pain does not radiate. Pain currently is 3 out of 10 on a pain scale. Quality of pain is described as crampy, Pain began gradually, x5 days Is continuous, Alleviated by nothing. Neuro: Level of Consciousness is awake, alert, obeys commands, Oriented to person, place, time, situation, Manager Imaging are equal bilaterally Moves all extremities. Full function Gait is steady, Speech is normal, Facial symmetry appears normal, Pupils are PERRLA, Intact. Cardiovascular: Patient's skin is warm and dry. Respiratory: Airway is patent Respiratory effort is even, unlabored, Respiratory pattern is regular, symmetrical. GI: Abdomen is round non-distended, Bowel sounds present X 4 quads. Abd is soft and non tender X 4 quads. Reports bloating, cramping. : No deficits noted. No signs and/or symptoms were reported regarding the genitourinary system. EENT: No deficits noted. No signs and/or symptoms were reported regarding the EENT system. Derm: No deficits noted. No signs and/or symptoms reported regarding the dermatologic system. Skin is intact, is healthy with good turgor, Skin is dry, Skin is normal, Skin temperature is warm. Musculoskeletal: No deficits noted. No signs and/or symptoms reported regarding the musculoskeletal system. Circulation, motion, and sensation intact. Range of motion: intact in all extremities. 08/19 00:07 Reassessment: Patient appears in no apparent distress at this time. Patient and/or vc1 family updated on plan of care and expected duration. Pain level reassessed. Patient is alert, oriented x 3, equal unlabored respirations, skin warm/dry/pink. 01:05 General: Appears comfortable, Behavior is calm, cooperative. Neuro: Level of tb4 Consciousness is awake, alert, obeys commands, Oriented to person, place, time, situation, Moves all extremities. Full function Gait is steady, Speech is normal, Facial symmetry appears normal. Respiratory: Airway is patent Respiratory effort is even, unlabored, Respiratory pattern is regular, symmetrical, NG Tube 12FR to right nostril. 03:36 Reassessment: Report given just now to Colleen RN. tb4 Vital Signs: 08/18 19:27 BP 166 / 97; Pulse 81; Resp 18; Temp 98.4; Pulse Ox 100% ; Weight 96.62 kg; Height 5 cp4 ft. 6 in. ; Pain 5/10; 20:57 BP 141 / 83; Pulse 84; Resp 19; Pulse Ox 99% on R/A; Pain 3/10; tb4 22:00 BP 127 / 59; Pulse 73; Resp 18; Pulse Ox 99% ; vc1 23:00 BP 134 / 95; Pulse 69; Resp 16; Pulse Ox 99% ; vc1 08/19 00:00 BP 151 / 72; Pulse 75; Resp 16; Pulse Ox 95% ; vc1 01:00 BP 151 / 72; Pulse 96; Resp 17; Pulse Ox 99% on R/A; Pain 0/10; tb4 08/18 19:27 Body Mass Index 34.38 (96.62 kg, 167.64 cm) cp4 08/18 19:27 Pain Scale: Adult cp4 20:57 Pain Scale: Adult tb4 01:00 Pain Scale: Adult tb4 Farheen Coma Score: 19:47 Eye Response: spontaneous(4). Motor Response: obeys commands(6). Verbal Response: sp4 oriented(5). Total: 15. ED Course: 08/18 19:22 Patient arrived in ED. mr 19:24 Hugo Valera MD is Attending Physician. sp4 19:29 Triage completed. cp4 19:29 Arm band placed on right wrist. Patient placed in waiting room. cp4 20:13 CT Chest, Abdomen, Pelvis - W/Contrast In Process Unspecified. EDMS 20:20 Inserted saline lock: in right antecubital area, using aseptic technique. Blood vc1 collected. Flushed with 10 mL NS. 20:21 CBC with Diff Sent. vc1 20:21 CMP Sent. vc1 20:21 Lipase Sent. vc1 20:57 Patient has correct armband on for positive identification. Bed in low position. Call tb4 light in reach. Side rails up X 1. Adult w/ patient. Client placed on continuous cardiac and pulse oximetry monitoring. NIBP monitoring applied. Warm blanket given. 20:57 Initial lab(s) drawn, by me, sent to lab. Urine collected: clean catch specimen, clear. tb4 21:03 No provider procedures requiring assistance completed. tb4 21:44 initiated transfer with padmini at [facility]. 2144. kmf 23:31 pt was accepted by Dr. Moreno \T\2300. Accepting admin padmini guan \T\ 2253. Pt will go km f to [facility] 10 [address]. 08/19 00:06 Sully Chambers, RN is Primary Nurse. vc1 00:32 Addy PORTILLO attempted to call report x 4 times phone would ring multiple times then vk disconnect called [facility] Transfer center spoke with Padmini Cox, she also reached out to floor, advised to send patient to facility and she will reach out to house sup. regarding matter. 00:53 Inserted saline lock: 22 gauge in left antecubital area, using aseptic technique. vk Flushed with 10 mL NS. 01:13 NGT: inserted 12 Fr. via right nare. Patient tolerated well. tb4 01:18 X-Ray to verify placement. tb4 01:24 NGT: verified placement of air over stomach, Placement verified by X-ray. tb4 01:25 Abdomen Single View In Process Unspecified. EDMS 01:34 Provided Education on: transfer. cp4 01:34 Patient transferred, IV remains in place. cp4 Administered Medications: 08/18 20:55 Drug: Pantoprazole IVP 40 mg IVP once Route: IVP; Site: right antecubital; tb4 21:07 Follow up: Response: No adverse reaction tb4 20:56 Drug: NS 0.9% IV 1000 ml IV at 1000 ml once; to be given as a bolus over 60 minutes tb4 Route: IV; Rate: 1000 ml; Site: right antecubital; 08/19 00:24 Follow up: Response: No adverse reaction; IV Status: Completed infusion tb4 08/18 20:56 Drug: Ketorolac IVP 30 mg IVP once Route: IVP; Site: right antecubital; tb4 21:07 Follow up: Response: No adverse reaction; Pain is decreased tb4 20:57 Drug: Ondansetron IVP 8 mg IVP once; over 2 minutes Route: IVP; Site: right antecubital;tb4 21:08 Follow up: Response: No adverse reaction; Nausea is decreased tb4 08/19 00:19 Drug: Potassium Chloride IV 20 mEq IV at calculated rate once; administer over 1-2 tb4 hours Route: IV; Rate: calculated rate; Site: right antecubital; 01:12 Follow up: Response: No adverse reaction; IV Status: Completed infusion tb4 00:19 Drug: metoCLOPramide IVP 10 mg IVP once; over 1 to 2 minutes Route: IVP; Site: right tb4 antecubital; 01:34 Follow up: Response: No adverse reaction; Nausea is decreased cp4 00:19 Drug: fentaNYL (PF) IVP 50 mcg IVP once Route: IVP; Site: right antecubital; tb4 01:25 Follow up: Response: No adverse reaction; Pain is decreased; RASS: Alert and Calm (0) tb4 00:47 Drug: Diazepam IVP 10 mg IVP once Route: IVP; Site: right antecubital; tb4 01:26 Follow up: Response: No adverse reaction; Anxiety decreased tb4 01:11 Drug: Pantoprazole IV 8 mg/hr IV at 25 ml/hr continuous; (Standard dilution is 80 mg in tb4 250 mL NS) Route: IV; Rate: 25 ml/hr; Site: right antecubital; 01:25 Follow up: Response: No adverse reaction; IV Status: Infusion continued tb4 01:12 Drug: D5-NS IV 1000 ml IV at 125 ml/hr once; 125 mL/hr continuous Route: IV; Rate: 125 tb4 ml/hr; Site: left antecubital; 01:24 Follow up: Response: No adverse reaction; IV Status: Infusion continued tb4 01:34 Not Given (Patient Refused): morphineor iv 4 mg IVP once over 4 mins cp4 Medication: 08/18 20:57 VIS not applicable for this client. tb4 Outcome: 22:01 ER care complete, transfer ordered by . sp4 08/19 01:34 Transferred by ground EMS to [facility], [facility], Transfer form completed. cp4 X-rays sent w/ patient. Condition: stable Instructed on the need for transfer, 01:35 Patient left the ED. cp4 Signatures: Dispatcher [employer] EDHI Mendez Juli, Reg Reg mr Sully Chambers, RN RN vc1 Hugo Valera MD MD sp4 Lisa Miner [address] [facility] Bhargavi Goss Terri, RN RN tb4 Corrections: (The following items were deleted from the chart) 08/18 23:31 23:28 initiated transfer with padmini at [facility] transfer center. [facility]
[2025-08-18] MEDS ORDERED: FENTANYL CITR 100 MCG/2 ML ONE (23:42)
[2025-08-18] MEDS ORDERED: METOCLOPRAMIDE 10 MG/2mL INJ ONE (23:42)
[2025-08-18] MEDS ORDERED: KCL 20 MEQ/100 mL IVPB 100 ML IV ONE (23:43)
[2025-08-18] MEDS ORDERED: NA CHLORIDE 0.9% 250 ML ONE (23:43)
[2025-08-18] MEDS ORDERED: D5 0.9 NS 1,000 ML IV ONE (23:44)
[2025-08-19] MEDS ORDERED: DIAZEPAM 10 MG/2 ML INJ SYRINGE ONE (00:40)
[2025-08-19] MEDS ORDERED: NA CHLORIDE 0.9% 250 ML ONE (00:55)
[2025-08-19 01:47] VITALS: TEMP 98.4
[2025-08-19 01:55] VITALS: BP 151/72
[2025-08-19 01:56] VITALS: O2SAT 99
--- NOTE | 2025-08-19 05:58 | RAD REPORT ---
EXAM: XR Abdomen, 1 View CLINICAL HISTORY: NGT PLACEMENT TECHNIQUE: Frontal supine view of the abdomen/pelvis. COMPARISON: Correlation is made with report only from CT Abdomen Pelvis dated 08/18/2025 FINDINGS: Lower thorax: Moderate hiatal hernia. Gastrointestinal tract: No small bowel dilation. Bones/joints: Unremarkable. No acute fracture. Tubes, lines and devices: Nasogastric tube coiled projecting over the left upper quadrant in the ex pected region of the subdiaphragmatic portion of the stomach. IMPRESSION: Nasogastric tube coiled projecting over the left upper quadrant in the expected region of the subdiap hragmatic portion of the stomach. Electronically signed by: Conor Melendez MD 08/19/2025 03:00 AM CDT RP Due to temporary technical issues with the PACS/[employer] reporting system, reports are being nat d by the in-house radiologist without review as a courtesy to ensure prompt reporting the interpreting radiologist is fully responsible for the content of the report. Transcribed Date/Time: 08/19/2025 5:57 AM
== END 2025-08-19 01:35 | disposition short-term general hospital (02) ==
LOC: ER 19:20
DX: K56.2 Volvulus (principal); K44.9 Diaphragmatic hernia without obstruction or gangrene; R11.0 Nausea
CPT/HCPCS: 96365; 96361; 85025; 36415; 82565; 83690; 80053; 71260; 74177; 74018; 96375; 99285; Q9967; J1885; J3480; J2765; J2470 ×2; J3360; J3010; J2405; J7042; J7050 ×2; J7030